=== PATIENT | female | born 1965 | race Caucasian/White ===

== ENCOUNTER 2021-03-28 08:38 | Day surgery (SDC) | payer BC ==
[2021-03-23 15:43] VITALS: BMI 32.9
[2021-03-28 10:45] VITALS: TEMP 97.7
[2021-03-28 11:18] VITALS: BP 168/74; PULSE 78
== END 2021-03-28 11:29 | disposition home or self-care (01) ==
LOC: FASU-ENDO 08:38
PROVIDERS: ATTEND Internal Medicine Gastroenterology
PROC: 0DJD8ZZ Inspection of Lower Intestinal Tract, Via Natural or Artificial Opening Endoscopic (ICD-10-PCS; principal; 2021-03-28 10:09)
DX: Z12.11 Encounter for screening for malignant neoplasm of colon (principal); Z80.0 Family history of malignant neoplasm of digestive organs